=== PATIENT | female | born 1955 | race Caucasian/White ===

== ENCOUNTER 2024-09-26 10:41 | Emergency (ER) | payer MEDICARE, OTHER, SELFPAY ==
[2024-09-26 10:52] VITALS: BP 140/77
[2024-09-26 11:47] VITALS: BP 147/79
[2024-09-26 12:24] VITALS: BP 134/70
[2024-09-26 12:36] LABS: % Basophils 0.5 % (0-2); % Eosinophils 0.8 % (0-6); % Immature Granulocytes 0.3 % (0-0.5); % Lymphocytes 20.5 % (20.5-51.1); % Monocytes 5.8 % (1.7-9.3); % Neutrophils 72.1 % (42.2-75.2); Absolute Eosinophils 0.1 10^3/uL (0-0.7); Absolute Lymphocytes 1.4 10^3/uL (1.2-3.4); Absolute Monocytes 0.4 10^3/uL (0.1-0.6); Absolute Neutrophils 4.8 10^3/uL (1.4-6.5); Hematocrit 35.7 % (37.0-47.0); Hemoglobin 11.6 g/dL (12.0-16.0); Mean Corp Hgb Conc. 32.5 g/dL (33.0-37.0); Mean Corpuscular Hgb 31.4 pg (27.0-31.0); Mean Corpuscular Volume 96.5 fL (81.0-99.0); Mean Platelet Volume 10.5 fL (7.4-10.4); Nucleated Red Blood Cells % 0 %; Platelet Count 228 10^3/uL (130-400); White Blood Cell Count 6.6 10^3/uL (4.8-10.8)
--- NOTE | 2024-09-26 12:36 | ED.GENMED ---
History of Present Illness
General
Chief Complaint: Abdominal Symptoms
Source: patient
Exam Limitations: none
Time Seen by Provider: 09/26/24 12:15
Nursing documentation reviewed up to this point in time: agreed with
History of Present Illness
History of Present Illness:
69-year-old female with history hypertension, hyperlipidemia presenting to the emergency department for evaluation of lower abdominal pain associated with vomiting and diarrhea. Symptoms initially started Friday evening and she reports multiple
bouts of watery diarrhea with some bright red blood. This was accompanied by vomiting as well as crampy lower abdominal pain. Diarrhea has since slowed down although patient remains feeling very tired and weak. She had no known fevers. She
denies any chills, urinary symptoms, upper abdominal pain. She was sent by her primary care doctor to the emergency department for evaluation.
Of note�patient was recently admitted at [facility] about 3 weeks ago for 10 days for gangrenous pancreatitis complicated by intra-abdominal abscess. This was treated with IV ertapenem at home which she finished about a week ago. It seems
the patient has a history of intra-abdominal abscesses in the past, as well. She was told in the past that she had diverticulosis of her transverse colon.
Patient did eat Thanksgiving lunch at a restaurant although no one else became ill.
Review of Systems
Review of Systems
Allergies reviewed?: Yes
All Other Systems: ROS reviewed and negative except as documented in HPI and ROS
Phy Exam
Physical Exam
Physical Exam:
Vitals: Mildly hypertensive, otherwise vital signs are stable. Afebrile
General: Patient is well appearing, no acute distress. Nontoxic appearing
Skin: Warm and dry, no rashes or lesions
Head: Normocephalic, atraumatic
Eyes: Sclera nonicteric. EOMs intact. No nystagmus.
Throat: Protecting airway
Neck: Normal ROM, no cervical spine tenderness, no meningismus
Cardiac: Regular rate and rhythm, no murmurs.
Pulm: Normal respiratory effort, no wheezes, rales, rhonchi heard on exam.
Abdomen: Abdomen soft. Mild abdominal tenderness in left lower quadrant without rebound tenderness or guarding. No CVA tenderness
Extremities: No evidence of cyanosis or edema. Palpable distal pulses
Neuro: AAOx3. Grossly intact.
Psychiatric: Normal affect.
Course
Orders/Labs/Results
Orders:
Orders
09/26/24 12:20
Type And Crossmatch [Type+Screen] Urgent
Complete Blood Count/With Diff Urgent
Comprehensive Metabolic Panel Urgent
Lipase Urgent
09/26/24 12:37
0.9% Sodium Chloride 1000 ml [Nss] 1,000 ml IV BOLUS
09/26/24 12:38
CT Abd/pelvis W Iv Cont Urgent
Comment: recent intra-abdominal abscess, pancreatitis
Reason For Exam: lower abdominal pain, diarrhea
Ondansetron Injectable [Zofran] 4 mg IV NOW STA
09/26/24 14:32
Urinalysis Reflex To Culture Urgent
Date Specimen was Collected: 09/26/24
Time Specimen was Collected: 14:21
Abnormal Lab Results
09/26/24 09/26/24
12:20 14:32
RBC 3.70 L 10^6/uL
(4.20-5.40)
Hgb 11.6 L g/dL
(12.0-16.0)
Hct 35.7 L %
(37.0-47.0)
MCH 31.4 H pg
(27.0-31.0)
MCHC 32.5 L g/dL
(33.0-37.0)
MPV 10.5 H fL
(7.4-10.4)
BUN 18 H mg/dl
(7-17)
Urine Ketones 1+ A
(Negative)
09/26/24 12:20
09/26/24 12:20
Vital Signs
Initial and Last Documented VS:
Initial Vital Signs
Temp Pulse Resp BP Pulse Ox
97.6 F 84 16 140/77 98
09/26/24 10:52 09/26/24 10:52 09/26/24 10:52 09/26/24 10:52 09/26/24 10:52
Last Documented Vital Signs
Temp Pulse Resp BP Pulse Ox
97.6 F 84 16 151/73 98
09/26/24 10:52 09/26/24 10:52 09/26/24 10:52 09/26/24 15:12 09/26/24 15:12
MDM/Problems Addressed
Differential Diagnosis Includes:
Not limited to: Bacterial colitis, viral colitis, acute dehydration, diverticulitis, appendicitis, intra-abdominal abscess, C. difficile, etc.
MDM/Problems Addressed:
69-year-old female with recent outside hospital admission for pancreatitis and intra-abdominal abscess presenting with lower abdominal pain and blood-tinged diarrhea which has largely resolved by this point. She is concerned for possible
dehydration. She denies any fevers, abdominal pain, chest pain, shortness of breath. Vital signs are stable. She is afebrile. On exam patient is well-appearing. She is not toxic appearing. Abdomen is soft with very mild left lower quadrant
abdominal tenderness. No rebound tenderness or guarding. She has no epigastric or right upper quadrant abdominal tenderness. Labs were initiated in triage without any clinically significant abnormalities. She has no leukocytosis. Hemoglobin is
stable. Will give Zofran and IV fluids given recent GI losses. Given complicated abdominal history and recent infection�will obtain CT abdomen/pelvis. Other suspicion lower symptoms have essentially self resolved�for possible C. difficile given
recent hospitalizations and IV antibiotics. Will attempt to collect stool while in emergency department. Will closely monitor and reassess
Update: CT report reviewed. No acute findings noted. There was findings of sigmoid diverticulosis without any faction. Although she does have minimal pain this area�she is afebrile with no leukocytosis. Low suspicion for acute infection and
given recent antibiotic use we will hold on antibiotics at this time. Pancreas without acute abnormalities. No evidence of recurrent intra-abdominal abscess. Unfortunately as patient was unable to provide stool sample in emergency department.
Lower suspicion for acute infectious diarrhea given it has improved�although will send home with prescription for stool culture and collection tools if persist. Patient otherwise I feel stable for discharge home with primary care follow-up. She
does have an appointment scheduled with GI, as well in the future. return precautions discussed at length. Patient feels better after IV hydration and ready for discharge case and findings were discussed with attending physician.
Chronic conditions affecting care:
Hypertension
Acute Exacerbation and/or Progression of Chronic Illness:
Acutely hypertensive
*Radiology
Radiology exam reviewed: radiology read reviewed
*Pulse Oximetry
Patient hypoxic: no
*EKG
Interpreted by ED Provider?: NA
*Pump Service Supervisor Interpretation
Rate: Pump Service Supervisor- N/A
*Critical Care Note
Total Time (30-74mins, 75-104mins- exclusive of procedures): Not Applicable
ED Attending Note
-
Portions of this chart may have been created with voice recognition software.� Occasional wrong word or��sound alike� substitutions may have occurred due to the inherent limitations of voice recognition software.
Discharge Plan
Departure
Patient Disposition: Home (Routine Discharge)
Date of Disposition: 09/26/24
Time of Disposition: 17:08
Patient with high blood pressure during this ER visit?: Yes
Condition: Good
Discharge Problem:
Lower abdominal pain
Instructions: Diverticulosis (DC), Abdominal Pain, Adult ED, Clear Liquid Diet
Prescriptions:
New
ondansetron 4 mg tablet,disintegrating
4 mg PO Q8H PRN (Reason: nausea and vomiting) Qty: 7 0RF
No Action
losartan 25 mg Tablet
25 mg PO QPM
lovastatin 40 mg Tablet
40 mg PO QPM
cholecalciferol (vitamin D3) [Vitamin D3] 25 mcg (1,000 unit) Tablet
25 mcg PO QPM
Referrals:
Ángela Velazquez MD [Family Provider] - Follow up in 2-3 days
Activity Restrictions/Additional Instructions:
RETURN TO THE EMERGENCY DEPARTMENT WITH ANY FEVERS, WORSENING ABDOMINAL PAIN, INTRACTABLE NAUSEA/VOMITING, PERSISTENT DIARRHEA, WORSENING IN CURRENT SYMPTOMS, OR ANY OTHER CONCERNS
-You did receive a liter of fluids and some Zofran while in the emergency department today. Given that you are unable provide a stool sample while in the emergency department�you have been sent home with a prescription and tools to collect a stool
sample if you are diarrhea persists.
-Your CT scan did show diverticulosis of your sigmoid colon although no evidence of acute infection. I would recommend a clear liquid diet and then transition to low fiber the next few days to give your bowel some rest. It is important to stay very
well-hydrated.
-Follow-up with your GI doctor with your scheduled appointment
-As discussed-you should follow with your primary care provider in a few days for further evaluation/management and to ensure that your symptoms are improving.
Monitor your symptoms closely return to the emergency department any acute worsening/new symptoms or any other concerns
Interventions
Interventions:
*Risk Screen - Suicide Last Done: 09/26/24 10:52
*General Assessment Last Done: 09/26/24 12:21
*Neglect/Abuse Screening Last Done: 09/26/24 10:52
*ED COVID-19 Vaccine History Last Done: 09/26/24 12:21
*Nursing Disposition Last Done: 09/26/24 17:40
YF-Xsafea-Klqzapqyjs Assessment Last Done: 09/26/24 12:21
Discharge Date and Time
Discharge Date/Time: 09/26/24 17:40
Print Language: [id number]
[2024-09-26 12:43] LABS: ALT (SGPT) 24 U/L (0-35); AST (SGOT) 27 U/L (14-36); Albumin 3.8 g/dl (3.5-5.0); Alkaline Phosphatase 86 U/L (38-126); Blood Urea Nitrogen 18 mg/dl (7-17); Calcium 9.3 mg/dl (8.4-10.2); Carbon Dioxide 28 mmol/L (22-30); Chloride 106 mmol/L (98-107); Glucose 92 mg/dl (70-99); Lipase 182 U/L (23-300); Potassium 4.2 mmol/L (3.5-5.1); Sodium 141 mmol/L (135-145); Total Bilirubin 0.8 mg/dl (0.2-1.3); Total Protein 6.6 g/dl (6.3-8.2); eGFR > 60.00
[2024-09-26] MEDS: NSS 1000 IV (12:53)
[2024-09-26] MEDS: ZOFRAN 4 MG IV (12:53)
[2024-09-26 13:00] VITALS: BP 135/75
[2024-09-26 14:39] LABS: Urine Albumin Negative (Neg - Trace); Urine Bilirubin Negative (Negative); Urine Character Clear (Clear); Urine Color Yellow; Urine Glucose Negative (Negative); Urine Ketone 1+ (Negative); Urine Leukocyte Negative (Negative); Urine Nitrite Negative (Negative); Urine Occult Blood Negative (Negative); Urine Urobilinogen Negative (Neg - 1+)
[2024-09-26 15:12] VITALS: BP 151/73
== END 2024-09-26 17:40 | disposition home or self-care (01) ==
LOC: EMR 10:41
PROVIDERS: Physician Assistant; EMERGENCY PHYSICIAN Emergency Medicine; FAMILY PHYSICIAN Internal Medicine
DX: K57.30 Diverticulosis of large intestine without perforation or abscess without bleeding (principal); I10 Essential (primary) hypertension; E78.5 Hyperlipidemia, unspecified
CPT/HCPCS: 96374; 96361; 99284; 74177; 80053; 81003; 83690; 85025; 86850; 86900; 86901; Q9967